=== PATIENT | female | born 1995 | race African-American/Black ===

== ENCOUNTER 2021-01-11 13:29 | Emergency (ER) | payer MEDICAID ==
[~2021-01-11] VITALS: Ht 170.2 cm; Wt 91.0 kg
[2021-01-11] MEDS ORDERED: IBUPROFEN 400MG TABLET PO ONE (14:00)
[2021-01-11 14:09] VITALS: BP 189/111
[2021-01-11] MEDS ORDERED: IBUP-2029 PO (14:47)
== END 2021-01-11 15:04 | disposition home or self-care (01) ==
LOC: ER 13:29
DX: S63.614A Unspecified sprain of right ring finger, initial encounter (principal); F12.10 Cannabis abuse, uncomplicated; W23.0XXA Caught, crushed, jammed, or pinched between moving objects, initial encounter; Y93.89 Activity, other specified; Y92.89 Other specified places as the place of occurrence of the external cause; Y99.8 Other external cause status
CPT/HCPCS: 29130; 73130; 99283; Z7610

== ENCOUNTER 2022-09-23 11:00 | Inpatient (IN) | payer OTHER ==
[~2022-09-23] VITALS: Ht 172.7 cm; Wt 82.0 kg
[~2022-09-23 11:00] MED LIST: IBUP-2029 PO; [UNRECOGNIZED DRUG - CODE] PO
[2022-09-23 12:37] LABS: BASOPHILS % 0.2 % (0.0-2.0); EOSINOPHILS % 0.4 % (0.0-5.0); HEMATOCRIT. 42.5 % (36.0-48.0); HEMOGLOBIN. 13.5 g/dL (12.0-16.0); LYMPHOCYTES % 11.8 % (20.0-50.0); MEAN CORPUSCULAR HEMOGLOBIN 27.5 pg (28.0-32.0); MEAN CORPUSCULAR VOLUME 86.8 fL (81.0-99.0); MEAN PLATELET VOLUME 8.9 fl (7.4-10.4); MONOCYTES % 2.9 % (2.0-8.0); NEUTROPHILS % 84.7 % (40.0-76.0); PLATELET 207 x1000/uL (130-400); RED BLOOD CELL COUNT 4.89 mill/uL (4.2-5.4); RED CELL DISTRIBUTION WIDTH 13.6 % (11.6-14.6)
[2022-09-23 12:45] LABS: CHLORIDE 107 mEq/L (98-107)
[2022-09-23] MEDS ORDERED: SODIUM CHLORIDE 0.9% 1,000 ML IV ONE ×2 (13:00→14:45)
[2022-09-23] MEDS ORDERED: TRANEXAMIC ACID 1,000 MG/10 ML IV ONE (13:00)
[2022-09-23] MEDS ORDERED: OXYTOCIN 30 UNITS/500ML NS PMX 500 ML IV ONE (13:15)
[2022-09-23] MEDS ORDERED: TRANEXAMIC ACID IV SCH (13:30)
[2022-09-23] MEDS ORDERED: SODIUM CHLORIDE 0.9% IV SCH (13:30)
[2022-09-23] MEDS ORDERED: OXYTOCIN 30 UNITS/500ML NS PMX 500 ML IV NR (14:30)
[2022-09-23 17:53] LABS: HEMATOCRIT 34.5 % (36.0-48.0); HEMOGLOBIN 11.1 g/dL (12.0-16.0); MEAN CORPUSCULAR HEMOGLOBIN 27.9 pg (28.0-32.0); MEAN CORPUSCULAR VOLUME 86.8 fL (81.0-99.0); PLATELET 150 x1000/uL (130-400); RED BLOOD CELL COUNT 3.97 mill/uL (4.2-5.4); RED CELL DISTRIBUTION WIDTH 13.3 % (11.6-14.6)
[2022-09-23 18:01] LABS: INR 1.1; PARTIAL THROMBOPLASTIN TIME 30.2 sec (23.4-31.0); PROTHROMBIN TIME 11.9 sec (9.6-11.0)
[2022-09-23] MEDS ORDERED: IBUPROFEN 400MG TABLET PO PRN (18:15)
[2022-09-23] MEDS ORDERED: HEMORRHOIDAL SUPP PR PRN (18:15)
[2022-09-23] MEDS ORDERED: MAGNESIUM 4 G PREMIX 100 ML IV ONE (18:15)
[2022-09-23] MEDS ORDERED: OXYCODONE HCL/ACETAMINOPHEN 5/325MG TABLET PO PRN (18:15)
[2022-09-23] MEDS ORDERED: METHYLERGONOVINE MALEATE 0.2 MG/ML IM PRN (18:15)
[2022-09-23] MEDS: MAGNESIUM/ALUMINUM HYDROXIDE/SIMETHICONE 30ML UDC PO SCH ×2 (18:47→20:54)
[2022-09-23] MEDS: IBUPROFEN 800MG TABLET PO PRN (18:51)
[2022-09-23] MEDS ORDERED: CLONIDINE 0.1MG TABLET PO PRN (20:00)
[2022-09-23] MEDS: SIMETHICONE 80MG TABLET CHEW PO SCH (21:05)
[2022-09-24] MEDS: IBUPROFEN 800MG TABLET PO PRN (04:11)
[2022-09-24 05:58] LABS: BASOPHILS % 0.3 % (0.0-2.0); EOSINOPHILS % 0.9 % (0.0-5.0); HEMATOCRIT. 28.2 % (36.0-48.0); HEMOGLOBIN. 9.4 g/dL (12.0-16.0); LYMPHOCYTES % 28.5 % (20.0-50.0); MEAN CORPUSCULAR HEMOGLOBIN 28.4 pg (28.0-32.0); MEAN CORPUSCULAR VOLUME 85.7 fL (81.0-99.0); MEAN PLATELET VOLUME 8.2 fl (7.4-10.4); MONOCYTES % 6.4 % (2.0-8.0); NEUTROPHILS % 63.9 % (40.0-76.0); PLATELET 136 x1000/uL (130-400); RED CELL DISTRIBUTION WIDTH 13.2 % (11.6-14.6)
[2022-09-24] MEDS ORDERED: FERROUS SULFATE 325MG TABLET PO SCH (07:00)
[2022-09-24] MEDS: SIMETHICONE 80MG TABLET CHEW PO SCH (07:59)
[2022-09-24] MEDS: MAGNESIUM/ALUMINUM HYDROXIDE/SIMETHICONE 30ML UDC PO SCH (07:59)
[2022-09-24] MEDS ORDERED: PRENATAL VIT/FE FUMARATE/FA TABLET PO SCH (09:00)
[2022-09-24 09:25] VITALS: BP 118/72
[2022-09-24] MEDS ORDERED: NALOXONE HCL 0.4MG/ML VIAL IV PRN (14:00)
== END 2022-09-24 09:52 | disposition home or self-care (01) | DRG 561 ==
LOC: ER 11:00 → MICUSO 16:05 → EDBEDREQSVC 16:06 → EDBEDREQ 16:06 → EDBEDREQTM 16:06 → EDBEDREQSVC 18:18
PROVIDERS: ADMIT Internal Medicine; ATTEND Internal Medicine
PROC: 30233N1 Transfusion of Nonautologous Red Blood Cells into Peripheral Vein, Percutaneous Approach (ICD-10-PCS; principal; 2022-09-23)
DX: O72.2 Delayed and secondary postpartum hemorrhage (principal); D62 Acute posthemorrhagic anemia; N93.9 Abnormal uterine and vaginal bleeding, unspecified
CPT/HCPCS: 36415; 76830; 76856; 80053; 83605; 85025; 85027; 86850; 86900; 86920; 99291; J7030; J7050; P9016; J2590

== ENCOUNTER 2025-05-08 10:33 | Emergency (ER) | payer OTHER ==
[~2025-05-08] VITALS: Ht 180.3 cm; Wt 108.8 kg
[2025-05-08 10:34] VITALS: O2SAT 100
[2025-05-08 10:35] VITALS: TEMP 36.6; O2SAT 99
[2025-05-08] MEDS: LIDOCAINE 5% PATCH TOP STA (13:06)
[2025-05-08 13:07] VITALS: PULSE 83
[2025-05-08] MEDS: IBUPROFEN 600MG TABLET PO ONE (13:07)
[2025-05-08 13:56] VITALS: BP 193/105; RESP 16
[2025-05-08] MEDS: LIDOCAINE 5% PATCH TOP ONE (13:56)
[2025-05-08] MEDS ORDERED: IBUP-2029 MT (14:40)
[2025-05-08] MEDS ORDERED: LIDO700A30 TP (14:40)
[2025-05-08] MEDS ORDERED: CYCL10TA21 MT (14:40)
== END 2025-05-08 14:50 | disposition home or self-care (01) ==
LOC: ER 10:33
DX: M25.572 Pain in left ankle and joints of left foot (principal); M25.571 Pain in right ankle and joints of right foot; M25.472 Effusion, left ankle; M25.471 Effusion, right ankle; I10 Essential (primary) hypertension; Z79.1 Long term (current) use of non-steroidal anti-inflammatories (NSAID); X50.1XXA Overexertion from prolonged static or awkward postures, initial encounter; Y93.89 Activity, other specified; Y92.89 Other specified places as the place of occurrence of the external cause; Y99.8 Other external cause status
CPT/HCPCS: 99284; 29515; 81025; 73610; A6449